=== PATIENT | female | born 1970 | race Two or more races ===

== ENCOUNTER 2023-07-04 09:13 | Outpatient (CLI) | payer OTHER | END 2023-07-04 09:27 | disposition home or self-care (01) | LOC: MAMO-SONO 09:13 | PROVIDERS: ATTEND Plastic Surgery Surgery of the Hand | DX: N62 Hypertrophy of breast (principal); Z01.818 Encounter for other preprocedural examination ==

== ENCOUNTER 2025-04-28 09:02 | Outpatient (CLI) | payer OTHER | END 2025-04-28 09:06 | disposition home or self-care (01) | LOC: MAMO-SONO 09:02 | DX: Z12.31 Encounter for screening mammogram for malignant neoplasm of breast (principal); Z12.73 Encounter for screening for malignant neoplasm of ovary ==